=== PATIENT | female | born 1995 | race African-American/Black ===

== ENCOUNTER 2017-11-19 15:22 | Emergency (ER) | payer MEDICAID ==
[~2017-11-19] VITALS: Ht 157.5 cm; Wt 61.0 kg
[2017-11-19 15:23] VITALS: BP 151/98; PULSE 63; RESP 14; TEMP 98.8; O2SAT 100
--- NOTE | 2017-11-19 16:56 | PD ---
HPI Chief Complaint: Cold / Flu Symptoms Time Seen by Provider: 16:52 Travel History International Travel<30 days: No Contact w/Intl Traveler<30days: No Traveled to known affect area: No History of Present Illness HPI 22-year-old female presents to the emergency Department with complaint of cough , nasal congestion, intermittent sore throat, headache 2 days. Denies throat pain at this time. Says she can she has the flu. Denies fever, abdominal pain , vomiting. Denies chest tightness, shortness of breath, wheezing. No known sick contacts. Symptoms are mild in severity. Has been taking DayQuil for symptom management. No known relieving or aggravating factors. No known allergies. For healthcare his primary care provider. Denies significant past medical history. Has no other medical complaints. No other modifying factors or associated signs and symptoms. PFSH Past Medical History Developmental Delay: No Immunizations Current: Yes ?: Not Social History Alcohol Use: No Tobacco Use: No Allergies-Medications (Allergen,Severity, Reaction): Coded Allergies: No Known Allergies (Unverified Adverse Reaction, Unknown, 11/19/17) Reported Meds & Prescriptions Reported Meds & Active Scripts Active Ibuprofen 800 Mg Tab 800 Mg PO Q6HR PRN Magic Mouthwash Pediatric/Adult Liq (Lidocaine/Diphenhydr/Alum/Mg/Simeth) 60 Ml Susp 5 Ml SWISH-SWAL ACHS PRN Each 5mL contains: Diphenydramine 4.5mg, Viscous Lidocaine 2% 10mg, Maalox Advanced Regular Strength 2.7ml Tessalon Perles (Benzonatate) 100 Mg Cap 100 Mg PO TID PRN 3 Days Nasonex Nasal [place] (Mometasone Furoate) 50 Mcg/Act Naspr 2 [place] EACH NARE DAILY PRN Review of Systems Except as stated in HPI: all other systems reviewed are Neg Physical Exam Narrative GENERAL: Well-nourished, well-developed black female patient, in no acute distress; afebrile, nontoxic-appearing SKIN: Warm and dry. No rash. HEAD: Atraumatic. Normocephalic. EYES: Pupils equal and round. No scleral icterus. No injection or drainage. ENT: Mucosa pink and moist. No erythema or exudates. No uvular edema. No uvular , palatal, or tonsillar deviation. Airway patent. EARS: Bilateral pinnae and external canals appear within normal limits. Bilateral tympanic membranes without erythema, dullness or perforation. NECK: Trachea midline. No lymphadenopathy. CARDIOVASCULAR: Regular rate and rhythm. No murmur appreciated. RESPIRATORY: No accessory muscle use. Clear to auscultation. Breath sounds equal bilaterally. No retractions or tachypnea. GASTROINTESTINAL: Abdomen soft, non-tender, nondistended. Hepatic and splenic margins not palpable. Bowel sounds are active 4 quadrants. MUSCULOSKELETAL: No obvious deformities. No clubbing. No cyanosis. No edema. NEUROLOGICAL: Awake and alert. Oriented 3. No obvious cranial nerve deficits. Motor grossly within normal limits. Normal speech. Moves all extremities. 5/5 strength to all extremities. PSYCHIATRIC: Appropriate mood and affect; insight and judgment normal. Data Data Last Documented VS Vital Signs Date Time Temp Pulse Resp B/P (MAP) Pulse Ox O2 Delivery O2 Flow Rate FiO2 11/19/17 15:23 98.8 63 14 151/98 (115) 100 Room Air Orders Orders Influenzae A/B Antigen (11/19/17 15:52) Ed Discharge Order (11/19/17 16:56) Ibuprofen (Motrin) (11/19/17 17:00) MDM Medical Decision Making Medical Screen Exam Complete: Yes Emergency Medical Condition: Yes Medical Record Reviewed: Yes Differential Diagnosis Viral illness, influenza, upper respiratory infection Narrative Course 22-year-old female physical examination consistent with viral illness. Influenza is negative. Physical exam is unremarkable. Patient is afebrile and nontoxic-appearing. She denies fever, vomiting. Discussed viral illness and symptom management. Nasonex nasal spray, Tessalon Perles, Magic mouthwash, ibuprofen prescribed for home. Ibuprofen administered in the ER prior to discharge. Instructed patient to follow up with primary care provider. Patient verbalizes understanding and agreement with treatment plan. Patient is medically cleared and stable for discharge. Discussed reasons to return to the emergency department. Patient agrees with treatment plan. The patients vital signs are stable and the patient is stable for outpatient follow-up and treatment. Patient discharged home, stable and in no acute distress. Diagnosis Primary Impression: Viral illness Referrals: Primary Care Physician Patient Instructions: Cold Symptoms (ED), General Instructions, Safe Use of Cough and Cold Medicines (ED) Additional Instructions: Ibuprofen or Tylenol as directed and as needed to reduce fever; may alternate ibuprofen and Tylenol as needed every 3 hours to minimize fever [id number] cold/flu medications as directed and as needed for symptom management Get plenty of sleep/rest Drink plenty of fluids to prevent dehydration; such as Gatorade, Powerade, Pedialyte Foard diet to encourage nutrition such as crackers, fruit, applesauce, toast, soup etc. Use an air humidifier/turn off ceiling fans Follow-up with your primary care provider within 1 day Return immediately to the emergency department with worsening of symptoms Med/Other Pt SpecificInfo: Prescription(s) given Scripts Ibuprofen (Ibuprofen) 800 Mg Tab 800 MG PO Q6HR Y for PAIN, #20 TAB 0 Refills Prov: Nyla Muñoz 11/19/17 Pofgrkxhekeenvv-Ulaaeoarw-Mei-Alum-Simeth Liq (Magic Mouthwash Pediatric/Adult Liq) 60 Ml Susp 5 ML SWISH-SWAL ACHS Y for SORE THROAT, #60 ML 0 Refills Each 5mL contains: Diphenydramine 4.5mg, Viscous Lidocaine 2% 10mg, Maalox Advanced Regular Strength 2.7ml Prov: Nyla Muñoz 11/19/17 Benzonatate (Tessalon Perles) 100 Mg Cap 100 MG PO TID Y for COUGH for 3 Days, CAP 0 Refills Prov: Nyla Muñoz 11/19/17 Mometasone Nasal [place] (Nasonex Nasal [place]) 50 Mcg/Act Naspr 2 SPRAY EACH NARE DAILY Y for NASAL CONGESTION, #1 BOTTLE 0 Refills Prov: Nyla Muñoz 11/19/17 Disposition: 01 DISCHARGE HOME Condition: Stable Nyla Muñoz Nov 19, 2017 16:56
[2017-11-19] MEDS ORDERED: BENZ100 PO (16:58)
[2017-11-19] MEDS ORDERED: MOME17I EACH NARE (16:58)
[2017-11-19] MEDS ORDERED: MAGICPED SWISH-SWAL (16:58)
[2017-11-19] MEDS ORDERED: IBUP1TAB7 PO (16:59)
[2017-11-19] MEDS ORDERED: IBUPROFEN 800 MG TAB PO ONE (17:00)
== END 2017-11-19 17:17 | disposition home or self-care (01) ==
LOC: NEPK 15:22
DX: B34.9 Viral infection, unspecified (principal)
CPT/HCPCS: 87804; 99284